=== PATIENT | male | born 1980 | race Caucasian/White ===

== ENCOUNTER → 2025-01-08 | Day surgery (SDC) | payer OTHER ==
[2025-01-05 12:08] VITALS: BMI 31.8
[~2025-01-08] MED LIST: BUPIVACAINE HCL/PF 0.75% 10 ML VIAL ONE; LIDOCAINE HCL/PF 1% SDV 5ML VIAL ONE
[2025-01-08 12:57] VITALS: RESP 20
[2025-01-08 14:01] VITALS: BP 120/84; PULSE 86; TEMP 97.3
== END | disposition home or self-care (01) ==
LOC: JASU-SURG 05:27
PROVIDERS: ATTEND Pain Medicine Pain Medicine
PROC: 3E0T3BZ Introduction of Anesthetic Agent into Peripheral Nerves and Plexi, Percutaneous Approach (ICD-10-PCS; principal; 2025-01-08 13:43)
DX: M47.816 Spondylosis without myelopathy or radiculopathy, lumbar region (principal)
CPT/HCPCS: 76000-TC-FY